=== PATIENT | female | born 1995 | race Caucasian/White ===

== ENCOUNTER → 2021-11-26 12:57 | Outpatient (BNVA) | payer OTHER, SELFPAY | PROVIDERS: PCP Nurse Practitioner Primary Care; Visit Provider Psychiatry & Neurology Neurology | DX: G43.119 Migraine with aura, intractable, without status migrainosus (principal); M54.2 Cervicalgia; R20.2 Paresthesia of skin; R06.83 Snoring; G47.10 Hypersomnia, unspecified | CPT/HCPCS: 99202 ==

== ENCOUNTER 2021-12-13 07:23 | Outpatient (REF) | payer OTHER, SELFPAY ==
--- NOTE | ~2021-12-13 | MR_ITS ---
EXAMINATION: MR CERVICAL SPINE WITHOUT CONTRAST CLINICAL INFORMATION: 26-year-old with cervicalgia. COMPARISON: None TECHNIQUE: MRI of the cervical spine was obtained using routine sequences without contrast. FINDINGS: ALIGNMENT: There is a partially imaged upper thoracic levocurvature, convex to the left at T2-T3. There is straightening of the cervical spine in the sagittal plane. CRANIOCERVICAL JUNCTION/C1-C2 ARTICULATIONS: Intact and aligned. VISUALIZED INTRACRANIAL STRUCTURES: Within normal limits. VERTEBRAL BODIES: Normal height. DISC SPACES AND ENDPLATES: The intervertebral disc space heights are well maintained. There is disc desiccation at C3-C4. No significant spondylosis. Endplates appear intact. BONE MARROW: No significant marrow-replacing process or bone marrow edema. C2-C3: No disc herniation or canal stenosis. Mild facet arthropathy on the left noted with mild left-sided foraminal narrowing. C3-C4: Small, shallow central disc protrusion noted with slight indentation of the ventral thecal sac without cord impingement or canal stenosis. No significant DJD or neural foraminal stenosis. C4-C5: No disc herniation or canal stenosis. Mild facet arthropathy noted on the left and mild uncinate process spurring bilaterally without significant neural foraminal stenosis. C5-C6: No disc herniation or canal stenosis. Minor facet arthrosis on the left and minor uncinate process spurring bilaterally without neural foraminal stenosis. C6-C7: No disc herniation or canal stenosis. Mild facet arthrosis noted on the left with minor uncovertebral spurring on the left with no significant neural foraminal stenosis. C7-T1: No disc herniation or canal stenosis. Mild right and moderate left-sided facet hypertrophic degenerative change noted with ligamentum flavum thickening without significant canal stenosis. Mild left-sided neural foraminal narrowing is noted without neural impingement. T1-T2: No disc herniation or canal stenosis. Moderate to marked left-sided facet arthropathy noted with [id number] left-sided neural foraminal narrowing, with facet spurring encroaching on the exiting left T1 nerve root. Right posterolateral disc osteophyte complex suspected at T2-T3 which is not imaged in the axial plane. SPINAL CORD: The cervical and visualized upper thoracic spinal cord is normal in morphology, caliber and signal intensity. EXTRACRANIAL SOFT TISSUES: There are multiple enlarged bilateral suprahyoid IJ chain and posterior cervical chain lymph nodes bilaterally which are nonspecific findings. Prominent pharyngeal tonsils are also noted bilaterally. MR/MR cervical spine wo con IMPRESSION: 1. Straightening of the cervical spine in the sagittal plane with a partially imaged upper thoracic levocurvature convex to the left at T2-T3. 2. Mild disc degenerative change at C3-C4 with a small central disc protrusion at this level without cord impingement or canal stenosis. 3. Multilevel facet arthropathy, left more than right, as described above, with mild left-sided neural foraminal stenosis at C7-T1 and [id number] left-sided neural foraminal stenosis at T1-T2. 4. Upper thoracic degenerative changes as discussed above. 5. Cervical lymphadenopathy and prominence of the pharyngeal tonsils bilaterally. Differential diagnostic considerations include infectious and inflammatory disorders and neoplastic disease. Follow-up as per clinical indications. The [facility] staff will call to confirm receipt of this report with acknowledgement of the findings and any recommendations.
== END 2021-12-13 07:24 | disposition home or self-care (01) ==
LOC: HO.MRI 07:23
PROVIDERS: Visit Provider Psychiatry & Neurology Neurology
DX: M54.2 Cervicalgia (principal); R20.2 Paresthesia of skin
CPT/HCPCS: 72141

== ENCOUNTER → 2022-02-10 14:51 | Outpatient (REF) | payer OTHER, SELFPAY | LOC: HO.SL 14:51 | PROVIDERS: PCP Nurse Practitioner Primary Care; Visit Provider Psychiatry & Neurology Neurology | DX: G47.10 Hypersomnia, unspecified (principal); R06.83 Snoring | CPT/HCPCS: 95806 ==

== ENCOUNTER → 2022-05-04 15:01 | Outpatient (BNVA) | payer OTHER, SELFPAY | PROVIDERS: PCP Nurse Practitioner Primary Care; Visit Provider Nurse Practitioner Family | DX: G47.10 Hypersomnia, unspecified (principal); R06.83 Snoring | CPT/HCPCS: 99212 ==